=== PATIENT | female | born 1985 | race Caucasian/White ===

== ENCOUNTER 2021-02-01 14:08 | Emergency (ER) | payer OTHER ==
[~2021-02-01] VITALS: Ht 172.7 cm; Wt 136.1 kg
[~2021-02-01 14:08] MED LIST: PRENATAL PO
[2021-02-01] MEDS ORDERED: LEXAPRO 10 MG T10 M2 PO (14:24)
[2021-02-01 14:30] LABS: URINE BILIRUBIN NEGATIVE (Negative); URINE BLOOD 3+ (Negative); URINE CLARITY CLEAR; URINE COLOR YELLOW; URINE GLUCOSE-RANDOM NEGATIVE (Negative); URINE KETONES TRACE (Negative); URINE LEUKOCYTES-REFLEX TRACE (Negative); URINE NITRITE-REFLEX NEGATIVE (Negative); URINE PROTEIN 1+ (Negative); URINE SPECIFIC GRAVITY >= 1.030 (1.005-1.030); URINE UROBILINOGEN 0.2 E.U./dl (0.2-1.0)
[2021-02-01 14:49] LABS: BACTERIA-REFLEX 1-9 Few /HPF (None Seen); CASTS None Seen /LPF (None Seen); SQUAMOUS 0-3 Few /LPF (0-3); URINE RBC >20 Many /HPF (0-2); URINE WBC-REFLEX 6-15 Few /HPF (0-5)
[2021-02-01 14:50] LABS: CRYSTALS None Seen /LPF (None Seen)
[2021-02-01 14:52] LABS: HEMATOCRIT 44.1 % (37.0-47.0); HEMOGLOBIN 14.9 gm/dL (12.0-15.0); MCHC 33.8 g/dL (28.0-37.0); MCV 91.7 fL (80.0-100.0); MPV 8.9 fl. (7.2-11.1); NUCLEATED RBCS 0 /100WBC; PLATELET COUNT* 292 thou/uL (150-400); RBC 4.81 mil/uL (4.20-5.00); RDW-CV 12.7 % (10.5-14.5); WBC 14.1 thou/uL (4.0-11.0)
[2021-02-01 15:19] LABS: ALBUMIN 4.6 g/dL (3.4-5.0); CALCIUM 9.6 mg/dL (8.5-10.1); POTASSIUM 3.2 mmol/L (3.5-5.1); TOTAL BILIRUBIN 1.4 mg/dL (<0.1-1.0); TOTAL PROTEIN 8.4 g/dL (6.4-8.2)
[2021-02-01 15:22] LABS: ABSOLUTE LYMPHOCYTES 2.3 thou/uL (0.8-5.3); ABSOLUTE MONOCYTES 0.8 thou/uL (0.0-1.2); ATYPICAL LYMPHS 4 %
[2021-02-01 15:23] LABS: PLATELET ESTIMATE ADEQUATE
[2021-02-01] MEDS ORDERED: ONDANSETRON HCL4 M2 PO (16:05)
[2021-02-01] MEDS ORDERED: CIPRO500 M1 PO (16:05)
[2021-02-01] MEDS ORDERED: HYDROCODON-ACE1 EAC7 PO (16:05)
[2021-02-01] MEDS ORDERED: FLOMAX0.4 MG PO (16:05)
[2021-02-01 16:20] VITALS: BP 145/85
== END 2021-02-01 16:20 | disposition home or self-care (01) ==
LOC: M.ERS 14:08
PROVIDERS: Physician Assistant
DX: N13.2 Hydronephrosis with renal and ureteral calculous obstruction (principal); N39.0 Urinary tract infection, site not specified; Z79.899 Other long term (current) drug therapy